=== PATIENT | female | born 1935 | race Caucasian/White ===

== ENCOUNTER 2017-01-26 08:49 | Day surgery (SDC) ==
[2017-01-26] MEDS ORDERED: DIPRIVAN 20 ML VIAL IVP ONE (10:55)
[2017-01-26] MEDS ORDERED: VERSED ONE (10:55)
[2017-01-26 14:57] VITALS: BP 156/63; TEMP 98.2
--- NOTE | 2017-01-27 10:49 | OP ---
INDICATIONS FOR PROCEDURE: 81 year old female presents for evaluate change in bowel habits. She is having intermittent episodes of fecal incontinence. MEDICATIONS: SEE ANESTHESIA NOTES. PROCEDURE: COLONOSCOPY. REPORT: The risks, benefits, alternatives and limitations were discussed in detail with the patient. Informed consent was obtained. After adequate sedation was achieved, a digital rectal exam revealed good tone, no masses. The colonoscope was introduced into the rectum and advanced under direct visual guidance to the cecum. The cecum was identified by the appendiceal orifice and IC valve. I then slowly withdrew the scope in circumferential manner and examined the mucosa quite carefully. I looked on the proximal and distal sides of folds and flexures as best as possible. The colonic mucosa was unremarkably it's entire length other then a few diverticuli scattered throughout the left colon. No other abnormalities were noted including on the retroflex view of the anal canal. The prep was good and the withdraw time was 8 minutes and 40 seconds. The patient tolerated the procedure well with stable vital signs and pulse oximetry throughout. IMPRESSION: 1. Diverticulosis RECOMMENDATIONS: 1. High fiber diet and I have talked to her again about using a daily fiber supplement and she has not tried this yet but she agrees to do so 2. We will see her back in this office as needed 3. Future colonoscopies on an as needed basis. CC: Dr. Willy GONZALEZ
== END 2017-01-26 12:30 | disposition home or self-care (01) ==
LOC: SURG 08:49
PROVIDERS: ATTEND Internal Medicine Gastroenterology
DX: R19.4 Change in bowel habit (principal); K57.30 Diverticulosis of large intestine without perforation or abscess without bleeding; R15.9 Full incontinence of feces

== ENCOUNTER 2017-02-04 09:00 | Outpatient (RCR) ==
--- NOTE | 2017-01-25 15:34 | RS.OPPTEV2 ---
Date of Note: 01/25/17 Visit #: 1 Date of Evaluation: 01/25/17 Payer Source: MEDICARE Date of Onset/Injury/Change in Status: 06/26/16 Surgery Performed?: No Treatment Diagnosis: Neck stiffness, cervcial muscle spasms History of Condition/Mechanism of Injury:: Patient reports receiving a Pneumonia vaccine on 06/26/16 in the left arm. States that evening she experienced left UE swelling, pain, and an elevated blood pressure. States since then she has had muscle guarding in the left side of the neck and stiffness with ROM. States she was unable to drive for three days after receiving the injection. Prior Level of Function.....Patient was independent with: ADL's, Self Care, Caregiving, Ambulation/Mobility, Community Integration/Access Functional Limitations: ADL's Current Subjective/complaints:: Patient reports muscle spasms in the left side of the neck. States she has used a heated massager on the muscle recently, which she feels may have helped a little. Reports no difficulty using the left UE. Reports no problems with headaches. She denies any radiating symptoms into the left UE. Reports limited motion in her neck with driving. States she also notices discomfort in the neck with reading. Treatment Side (optional): Left Medical History Medical History: Unremarkable Smoking Status: Never smoker Hx Home Medications: Tenormin, Cozaar (both for HTN) Patient's Goals: Her goal is to get relief of neck stiffness. Pain Assessment - Pain Description Pain Location: neck (left side) Pain Description: Tightness Current Pain Intensity: 7/10 Worst Pain Intensity: 7/10 Functional Outcome Measure Neck Disability Index: 8 (8% impairment) - G Codes & Severity Modifier G Codes & Modifier: mobility current CI. mobility goal CH Source of G Code score: Neck disability index Observation - Observation Posture: Forward Head, Rounded Shoulders Handedness: Right - ROM Comments: Cervical flexion and extension is WFL's. Rotation right 75% of normal range, rotation left 50-60% of normal range. Patient reports tightness felt with end range with both directions. Bilateral UE AROM WFL's. - Strength Comments: UE strength 4+ to 5/5. Palpation Comments:: Left upper traps demonstrates moderate increased muscle tone. minimal increased muscle tone along left cervical paraspinals. No significant increased tone noted in right upper traps or paraspinals. Patient reports some tenderness with palpation to the upper traps, especially along the superior border of the left scapula. Sensation - Sensation Right Upper Extremity: Intact/Normal Left Upper Extremity: Intact/Normal - Treatment Modality: Ultrasound Parameters/Method Applied: 1.5 w/cm2 cont. X 9 min. to the left upper traps and lower cervical paraspinals. Patient Position: Sitting Interventions - Exercise/Activities/Manual Therapy Exercises/Activities: Patient instructed in gentle stretching into lateral flexion and rotation, and also advised to perform scapular retraction. Manual Therapy: NA HOME EXERCISE PROGRAM: gentle stretching into lateral flexion and rotation, and also advised to perform scapular retraction. - Charges Total Direct Minutes: 50 mins Total Treatment Time: 50 mins Procedures billed for this date of service:: MACARENA Bernal, Assessment Assessment: Patient presents to therapy with a diagnosis of neck stiffness. She demonstrates moderate increased muscle tone along the left upper traps and cervical paraspinals. Cervical rotation is limited, especially to her left. She demonstrates good potential to benefit from modalities, manual therapy, and stretching exercises to reduce her muscle guarding and regain full range of motion. Patient Education: Education of diagnosis, Body/Joint mechanics, Home Exercise Program, Education of Plan of Care Rehab Potential: Good Short Term Goals Goal #1: Muscle tone in left upper traps decreased to minimal. Goal to be met by: 02/01/17 Goal #2: Neck pain <4/10 at it's worst. Goal to be met by: 02/08/17 Goal #3: Cervical rotation WFL's with minimal discomfort. Goal to be met by: 02/08/17 Senior Care Goals Goal #1: Patient knows HEP and to continue ex's to maintain functional level at D/C. Goal to be met by: 03/01/17 Goal #2: Score on Neck Disability Index improved to 0. Goal to be met by: 03/01/17 Goal #3: Pt able to perform all activities and ADL's without neck pain or stiffness. Goal to be met by: 03/01/17 Goal #4: Pt to demonstrate good postural awareness. Goal to be met by: 03/01/17 Plan - Treatment to be Provided Procedures: Therapeutic Exercises, Therapeutic Activity, Manual Therapy, Patient Education Modalities: Electrical Stimulation, Ultrasound/Phonophoresis, Cryotherapy, Hot Packs, Mechanical Traction (cervical traction) - Treatment Plan Frequency: 2-3 X week Duration: 3 weeks ORDER # VISITS AND/OR THROUGH DATE: 03/01/17 - Treatment Code (1) Neck pain Comments: M54.2 (2) Muscle spasms of neck Comments: M62.48
--- NOTE | 2017-01-27 09:58 | RS.OPPTDN ---
Subjective Date of Note: 01/27/17 Visit #: 2 Date of Evaluation: 01/25/17 Payer Source: MEDICARE Treatment Diagnosis: Neck stiffness, cervcial muscle spasms Current Subjective/complaints:: Patient says pain is not present right now, but exists and increases with certain movements of the head or activities. (she is not specific about these however). Pain Assessment - Pain Description Pain Location: neck (left side) Pain Description: Tightness Current Pain Intensity: none right now, but increases with turning her neck to the L - Treatment Modality: Ultrasound Parameters/Method Applied: continuous @ 1.5 w/cm2 x 10 mins to L UT and lower cervical paraspinals Patient Position: Sitting - Heat/Cryotherapy Treatment: Hot Pack (cervical x 20 mins in sitting) Interventions - Exercise/Activities/Manual Therapy Exercises/Activities: Patient received gentle stretching into lateral flexion and rotation, and performs shoulder shrugs and scap adduction. Total minutes of Exercise: 12 Manual Therapy: NA HOME EXERCISE PROGRAM: gentle stretching into lateral flexion and rotation, and also advised to perform scapular retraction. - Charges Total Direct Minutes: 22 Total Treatment Time: 42 Procedures billed for this date of service:: hp, u/s, ex Assessment: Patient voices relief and pleased with decreased neck pain and tightness to the L side of her neck following u/s. She agrees she has improved ability to turn her head with less discomfort. Patient Education: Education of diagnosis, Body/Joint mechanics, Home Exercise Program, Home Safety, Activity Modification, Education of Plan of Care Patient demonstrates compliance with HEP?: Yes (initial ROM exercises) Short Term Goals Goal #1: Muscle tone in left upper traps decreased to minimal. Goal to be met by: 02/01/17 Progress towards Goal:: Progressing Goal #2: Neck pain <4/10 at it's worst. Goal to be met by: 02/08/17 Goal #3: Cervical rotation WFL's with minimal discomfort. Goal to be met by: 02/08/17 Director Operations Goals Goal #1: Patient knows HEP and to continue ex's to maintain functional level at D/C. Goal to be met by: 03/01/17 Goal #2: Score on Neck Disability Index improved to 0. Goal to be met by: 03/01/17 Goal #3: Pt able to perform all activities and ADL's without neck pain or stiffness. Goal to be met by: 03/01/17 Goal #4: Pt to demonstrate good postural awareness. Goal to be met by: 03/01/17 Plan PLAN OF CARE EXPIRES ON:: 03/01/17 ORDER # VISITS AND/OR THROUGH DATE: 03/01/17 PLAN: Continue Plan of Care
--- NOTE | 2017-02-02 11:29 | RS.OPPTDN ---
Subjective Date of Note: 02/02/17 Visit #: 3 Date of Evaluation: 01/25/17 Payer Source: MEDICARE Treatment Diagnosis: Neck stiffness, cervcial muscle spasms Current Subjective/complaints:: Patient admits improved pain to her neck and feeling treatment has been helping. Pain Assessment - Pain Description Pain Location: neck (left side) Pain Description: Tightness Current Pain Intensity: none right now, but increases with turning her neck to the L - Treatment Modality: Ultrasound Parameters/Method Applied: continuous @ 1.5 w/cm2 x 10 mins to L cervical (lower ) paraspinals and UT Patient Position: Sitting - Heat/Cryotherapy Treatment: Hot Pack (cervical in sitting x 20 mins) Interventions - Exercise/Activities/Manual Therapy Exercises/Activities: Patient received gentle stretching into lateral flexion and rotation, and performs shoulder shrugs and scap adduction. Total minutes of Exercise: 12 Manual Therapy: NA HOME EXERCISE PROGRAM: gentle stretching into lateral flexion and rotation, and also advised to perform scapular retraction. - Charges Total Direct Minutes: 22 Total Treatment Time: 42 Procedures billed for this date of service:: hp, u/s, ex Assessment: Patient reporting less neck pain since beginning PT treatment and demo improved riri for cspine ROM. Patient Education: Education of diagnosis, Body/Joint mechanics, Home Exercise Program, Home Safety, Activity Modification, Education of Plan of Care Patient demonstrates compliance with HEP?: Yes Short Term Goals Goal #1: Muscle tone in left upper traps decreased to minimal. Goal to be met by: 02/01/17 Progress towards Goal:: Progressing Goal #2: Neck pain <4/10 at it's worst. Goal to be met by: 02/08/17 Goal #3: Cervical rotation WFL's with minimal discomfort. Goal to be met by: 02/08/17 Elastic Attacher Zigzag Goals Goal #1: Patient knows HEP and to continue ex's to maintain functional level at D/C. Goal to be met by: 03/01/17 Goal #2: Score on Neck Disability Index improved to 0. Goal to be met by: 03/01/17 Goal #3: Pt able to perform all activities and ADL's without neck pain or stiffness. Goal to be met by: 03/01/17 Goal #4: Pt to demonstrate good postural awareness. Goal to be met by: 03/01/17 Plan PLAN OF CARE EXPIRES ON:: 03/01/17 ORDER # VISITS AND/OR THROUGH DATE: 03/01/17 PLAN: Continue Plan of Care
--- NOTE | 2017-02-04 10:37 | RS.OPPTDN ---
Subjective Date of Note: 02/04/17 Visit #: 4 Date of Evaluation: 01/25/17 Payer Source: MEDICARE Treatment Diagnosis: Neck stiffness, cervcial muscle spasms Current Subjective/complaints:: Patient c/o increased L sided neck pain. She says she is unsure why, but later she says she had a colonoscopy (which position may have triggered increased in pain to the neck). Reports it is painful to turn her head to either side. She says she has been trying to use better posture while reading on her phone. Pain Assessment - Pain Description Pain Location: neck (left side) Pain Description: Tightness Current Pain Intensity: none right now, but increases with turning her neck to the L - Treatment Modality: Ultrasound Parameters/Method Applied: L lower cervical paraspinals and UT @ 1.5 w/cm2 continuous x 14 mins Patient Position: Sitting - Heat/Cryotherapy Treatment: Hot Pack (cervical x 20 mins sitting) Interventions - Exercise/Activities/Manual Therapy Exercises/Activities: Patient received abbreviated exercise due to patient continuing to have discomfort with ROM. Encouraged continued postural mechanics /techniques and HEP. Total minutes of Exercise: 5 Manual Therapy: NA HOME EXERCISE PROGRAM: gentle stretching into lateral flexion and rotation, and also advised to perform scapular retraction. - Charges Total Direct Minutes: 19 Total Treatment Time: 39 Procedures billed for this date of service:: hp, u/s Assessment: Patient experiencing elevated L sided neck pain since colonoscopy. Depending on the sidelying position, pain may have resulted from this positioning. U/s was utilized longer to assist with increase in symptoms. She is unable to riri much ROM today, so discontinued and advised patient to try heat at home and HeP later on as well as increasing water intake too. Patient Education: Education of diagnosis, Body/Joint mechanics, Home Exercise Program, Home Safety, Activity Modification, Education of Plan of Care Short Term Goals Goal #1: Muscle tone in left upper traps decreased to minimal. Goal to be met by: 02/01/17 Progress towards Goal:: Progressing Goal #2: Neck pain <4/10 at it's worst. Goal to be met by: 02/08/17 Comments:: Recently had flare of pain affecting ROM Goal #3: Cervical rotation WFL's with minimal discomfort. Goal to be met by: 02/08/17 Snf Goals Goal #1: Patient knows HEP and to continue ex's to maintain functional level at D/C. Goal to be met by: 03/01/17 Goal #2: Score on Neck Disability Index improved to 0. Goal to be met by: 03/01/17 Goal #3: Pt able to perform all activities and ADL's without neck pain or stiffness. Goal to be met by: 03/01/17 Goal #4: Pt to demonstrate good postural awareness. Goal to be met by: 03/01/17 Plan PLAN OF CARE EXPIRES ON:: 03/01/17 ORDER # VISITS AND/OR THROUGH DATE: 03/01/17 PLAN: Continue Plan of Care
--- NOTE | 2017-02-08 11:45 | RS.CXNS ---
Date of scheduled appointment: 02/08/17 Type: No Show
--- NOTE | 2017-02-09 16:25 | RS.QUICKDC ---
Discharge from PT Date of Discharge: 02/09/17 Number of Visits: 4 Reason for Discharge: Patient calls to self discharge due to progress. See daily notes for specific treatment. Gcodes: mobility D/c--CI. goal--CH
== END 2017-02-15 ==
PROVIDERS: ATTEND Internal Medicine
DX: M62.838 Other muscle spasm (principal)

== ENCOUNTER 2018-06-29 12:38 | Inpatient (IN) ==
[2018-06-29 13:28] VITALS: BMI 21.0
[2018-06-29] MEDS ORDERED: NITROSTAT SL PRN (13:29)
[2018-06-29] MEDS ORDERED: VISTARIL INJ IM PRN (13:29)
[2018-06-29] MEDS ORDERED: ATROPINE SULFATE PFS IVP PRN (13:29)
[2018-06-29] MEDS ORDERED: TYLENOL PO PRN (13:29)
[2018-06-29] MEDS ORDERED: NORVASC PO PRN (13:50)
--- NOTE | 2018-06-29 14:34 | DI ---
EXAM: PA and lateral views of the chest HISTORY: Cough COMPARISON: Chest x-ray 06/24/2018 FINDINGS: The cardiomediastinal silhouette is normal. There is no pneumothorax or pleural effusion. There is no consolidation, nodule or mass. The osseous structures demonstrate degenerative disease of the spine. IMPRESSION: No acute cardiopulmonary process
--- NOTE | 2018-06-29 14:50 | US ---
EXAM: Bilateral carotid artery Doppler History: Weakness. Technique: Multiple sonographic images through the bilateral internal carotid arteries were obtained. Color duplex Doppler was used to interrogate vascular flow. Findings: The right ICA peak systolic velocity is within normal limits measuring 0.8. Meters per second. The right ICA/cca PSV ratio is normal at 1.3. The right vertebral artery is patent and demonstrates ante grade flow. Kowalski scale images demonstrate mild to moderate plaque buildup within the right internal carotid artery. The left ICA peak systolic velocity is within normal limits measuring 1.1 meters per second. The lef t ICA/cca PSV ratio is normal at 1.6. The left vertebral artery is patent and demonstrates antegrade flow. Kowalski scale images demonstrate mild to moderate plaque buildup within the left internal caroti d artery. Impression: No significant hemodynamic stenosis of the bilateral internal carotid arteries
[2018-06-29] MEDS ORDERED: COZAAR PO PRN (15:07)
[2018-06-29] MEDS ORDERED: ASPIRIN EC PO SCH (15:30)
[2018-06-30] MEDS ORDERED: ASPIRIN EC PO SCH (08:00)
[2018-06-30] MEDS ORDERED: NON-FORMULARY MEDICATION (Ferrous Sulfate [Iron] 325 MG) PO SCH (09:00)
[2018-06-30] MEDS ORDERED: BYSTOLIC PO SCH (09:00)
[2018-06-30] MEDS ORDERED: NON-FORMULARY MEDICATION (Calcium Carbonate [Calcium] 600 MG) PO SCH (09:00)
[2018-06-30] MEDS ORDERED: FERROUS SULFATE PO SCH (09:00)
[2018-06-30] MEDS ORDERED: COZAAR PO SCH (09:00)
[2018-06-30] MEDS ORDERED: DYAZIDE PO SCH (09:00)
[2018-06-30] MEDS ORDERED: CALCIUM 500 + VIT D 200 MG TABLET PO SCH (09:00)
--- NOTE | 2018-06-30 09:45 | PCM.PROG ---
Attending Provider: ATTENDING PROVIDER: Dr. LUIZA MENEZES This patient is seen with Nicky Castro, Nurse Practitioner. DATE OF SERVICE: 06/30/18 SUBJECTIVE: This 83 year old WHITE/ F was hospitalized 06/29/18. The patient is sitting in the chair. She is anxious, was not able to sleep last night. She did experience some jaw tightness. No sweating or shortness of breath. Blood pressure has been elevated. REVIEW OF SYSTEMS: CONSTITUTIONAL: No night sweats. No fatigue, malaise, lethargy. No fever or chills. HEENT: Eyes: No visual changes. No eye pain. No eye discharge. ENT: No runny nose. No epistaxis. No sinus pain. No odynophagia. No congestion. RESPIRATORY: No cough, no congestion. No hemoptysis. No shortness of breath. CARDIOVASCULAR: No angina symptoms. No CHF symptoms. No atypical chest pain for CAD. No palpitations. No orthopnea.. GASTROINTESTINAL: No abdominal pain. No nausea or vomiting. No diarrhea or constipation. No hematemesis. No hematochezia. GENITOURINARY: No urgency. No frequency. No dysuria. No hematuria. No obstructive symptoms. No discharge. No pain. No significant abnormal bleeding. MUSCULOSKELETAL: No musculoskeletal pain; no joint swelling. NEUROLOGICAL: Awake, alert, oriented to time, place and person. No headache. No neck pain. No syncope. No seizures. No dizziness. PSYCHIATRIC: Anxious. No depression. No suicidal thoughts. No homicidal thoughts. SKIN: No rash. No lesions. No wounds. ENDOCRINE: No unexplained weight loss. No weight gain. HEMATOLOGIC/LYMPHATIC: No anemia. No purpura. No petechiae. No prolonged or excessive bleeding. No palpable lymph nodes. PHYSICAL EXAMINATION: GENERAL: The patient is awake, alert and oriented, sitting in chair in no distress. VITAL SIGNS: Temperature 97.9 F, Pulse 53, Respiratory Rate 16, BP 124/64, Pulse Ox 98% HEENT: Head normocephalic, atraumatic. Eyes: Extraocular muscles are intact. Pupils are equal, round and reactive to light and accommodation. Ears: No lesions. Nose appeared normal. Throat: No exudate or erythema. NECK: Supple. No JVD, no carotid bruit. No lymphadenopathy or thyromegaly. LUNGS: Diminished breath sounds. Clear to auscultation. Percussion note normal. Chest symmetrical. HEART: S1, S2, no S3. No murmurs. No cyanosis or clubbing. No ascites. Pulses: Dorsalis pedis and posterior tibial pulses +1 to +2 both sides. ABDOMEN: Soft. Non-tender. Bowel sounds active. No CVA tenderness. No mass felt. EXTREMITIES: No edema. Full range of motion of all extremities, equal. NEUROLOGIC: No focal deficit. Cranial nerves II through XII are grossly intact. No headache, no double vision or headache. SKIN: Not dry. Intact. Turgor-normal. LYMPHATIC: No palpable lymph nodes/no lymphedema. MUSCULOSKELETAL: Normal joints with no swelling. Muscle tone is normal. LAB REVIEW: 06/30/18 01:30 06/30/18 01:30 06/30/18 01:30: Urine Color Yellow, Urine Clarity Clear, Urine pH 7.5, Ur Specific [place] 1.015, Urine Protein Negative, Urine Glucose (UA) Negative, Urine Ketones Negative, Urine Blood Negative, Urine Nitrite Negative, Urine Bilirubin Negative, Urine Urobilinogen 0.2, Ur Leukocyte Esterase Trace, Urine Microscopic RBC 0-2, Urine Microscopic WBC 2-5, Ur Squamous Epith Cells 2-5 06/30/18 01:30: Sodium 136.6 L, Potassium 3.82, Chloride 105.3, Carbon Dioxide 26.4, Anion Gap 8.72, BUN 19.5 H, Creatinine 0.87, Estimated GFR (MDRD) 62.00, BUN/Creatinine Ratio 22.41, Glucose 97.5, Calcium 8.87, Total Bilirubin 0.43, AST 28.1, ALT 15.2, Alkaline Phosphatase 61.3, Total Protein 6.88, Albumin 3.92 , Globulin 2.96, Albumin/Globulin Ratio 1.32 06/30/18 01:30: WBC 6.10, RBC 3.60 L, Hgb 11.9 L, Hct 34.3 L, MCV 95.3, MCH 33.1 H, MCHC 34.7, RDW Coeff of [place] 11.9, Plt Count 190, Immature Gran % (Auto) 0.8, Neut % (Auto) 43.1, Lymph % (Auto) 38.2, Sharkey % (Auto) 9.7, Eos % (Auto) 7.2 H, Baso % (Auto) 1.0, Immature Gran # (Auto) 0.1, Neut # (Auto) 2.6, Lymph # (Auto) 2.3, Sharkey # (Auto) 0.6, Eos # (Auto) 0.4, Baso # (Auto) 0.1 06/30/18 01:30: Total Creatine Kinase 42.1 06/30/18 01:30: Troponin I < 0.012 06/29/18 21:36: Total Creatine Kinase 47.4, Troponin I < 0.012 06/29/18 13:40: Free T4 0.90 06/29/18 13:40: Sodium 138.2, Potassium 3.62, Chloride 103.3, Carbon Dioxide 31.9 H, Anion Gap 6.62, BUN 17.0, Creatinine 0.89, Estimated GFR (MDRD) 60.00, BUN/Creatinine Ratio 19.10, Glucose 99.8, Calcium 9.18, Total Bilirubin 0.78, AST 26.1, ALT 15.9, Alkaline Phosphatase 56.1, Total Creatine Kinase 49.1, Troponin I < 0.012, Total Protein 7.30, Albumin 4.18, Globulin 3.12, Albumin/ Globulin Ratio 1.33, TSH 1.830 06/29/18 13:40: WBC 5.70, RBC 3.58 L, Hgb 11.9 L, Hct 34.6 L, MCV 96.6, MCH 33.2 H, MCHC 34.4, RDW Coeff of [place] 12.1, Plt Count 199, Immature Gran % (Auto) 0.2, Neut % (Auto) 51.4, Lymph % (Auto) 33.5, Sharkey % (Auto) 7.0, Eos % (Auto) 6.8, Baso % (Auto) 1.1, Immature Gran # (Auto) 0.0, Neut # (Auto) 2.9, Lymph # ( Auto) 1.9, Sharkey # (Auto) 0.4, Eos # (Auto) 0.4, Baso # (Auto) 0.1 ASSESSMENT: 1. HYPERTENSION. 2. QUESTIONABLY POSITIVE STRESS TEST. 3. ANXIETY. PLAN: 1. Renal u/s will be done today. Plan and coordination of the patient's care discussed in the presence of Puppet Master and nurse. CONDITION: Stable SCRIBED BY: ANA ROSA DUMONT, Government Affairs Researcher scribed while in presence of service performed by Dr. Menezes/Nicky Castro APRN on 06/30/18 ([id number])
[2018-06-30 11:34] VITALS: TEMP 98
--- NOTE | 2018-06-30 11:47 | DS ---
DATE OF SERVICE: 05/31/18 FINAL DIAGNOSIS: 1. Abnormal stress, Cardiolite with modest ischemia reversible involving anterior wall and apical area 2. Hypertension 3. Dyslipidemia 4. Chronic anemia 5. Osteoarthritis 6. Osteoporosis DISCHARGE INSTRUCTIONS: Discharge to [facility]. MEDICATIONS AT DISCHARGE: Tenormin 50mg PO daily Cozaar 50mg Twice a day Aspirin 81mg PO daily Ferrous sulfate twice a day NEW PRESCRIPTIONS: Lipitor 40mg PO daily which was started during this hospital stay. DIET INSTRUCTIONS: As tolerated SMOKING: N/A DISEASE SPECIFIC EDUCATION: Transfer Medications LABS: EKG abnormal sinus rhythm, Inferoseptal wall CA age undetermined. Echo cardiogram 2DM Mode normal with normal LV contractility. Stress sestamibi positive for modest ischemia on the distal anterior wall. HGB 11.9, CHT 34, WBC 6,000 normal differential, creatinine 0.8, BUN 19, potassium 3.8. T4 TSH normal. HOSPITAL COURSE: 83 year old white female has been having problems with her hypertension. She visited the emergency room nearly a week ago. Followup during office visits her blood pressure was found to be elevated to level of 210/100 in spite of being on Tenormin and Cozaar. Routine EKG done during ER visit showed anteroseptal septal wall CA with possibility of old inferior wall CA. The patient's EKG prompted cardiac work up with abnormal stress sestamibi done on 06/29/18. The patient is very active and looks good for her age and has practically no symptoms of coronary insufficiency. The level of exercise was very low, positive findings on stress sestamibi so the patient was strongly advised to have further workup done in a way of coronary angiogram to which she agreed. Transfer service of [facility] was called and they accepted the patient. CONDITION: Stable TIME SPENT: More than 60 minutes. CARLOS
[2018-06-30 12:10] VITALS: BP 144/63
--- NOTE | 2018-06-30 13:42 | HP ---
DATE OF SERVICE: 06/29/18 REASON FOR HOSPITALIZATION/HISTORY OF PRESENT ILLNESS: Blood pressure uncontrolled, 7 days. This Am blood pressure begun stress test 218/110. Was given Norvasc 10mg and IV Vasotec 1.25mg = 1.5 hours ago. Asymptomatic- mild shortness of breath with exertion- abnormal EKG, Inferior anteroseptal wall NV ,old. No symptoms of CHF /CAD. PAST MEDICAL HISTORY: Hypertension Dyslipidemia DJD spine Anemia Osteopenia PAST SURGICAL HISTORY: Colonoscopy 01-03 REVIEW OF SYSTEMS: CONSTITUTIONAL: No fever, no fatigue. HEENT: No sinus drainage, no sore throat. RESPIRATORY: No cough, no congestion. CARDIOVASCULAR: No atypical chest pain for coronary artery disease. No angina , CHF symptoms, palpitations or shortness of breath. GASTROINTESTINAL: No melena or abdominal pain. No GERD. GENITOURINARY: No hematuria, no prostatism, no polyuria. [employer]: No blackout, no dizziness, no headache, no double vision. MUSCULOSKELETAL: Osteoarthritis pain, no joint swelling. ENDOCRINE: No weight loss, no weight gain. SKIN: Not dry, no rash. PSYCHIATRIC: Anxious, no depression, no suicidal thoughts, no homicidal thoughts. SOCIAL HISTORY: Marital Status: . Alcohol Usage: No. Tobacco Usage: No. FAMILY HISTORY: Father Mother Brother 3 Sister 1 MEDICATIONS: Tenormin 50mg PO a day Cozaar 50mg PO a day Iron twice a day Vitamin/Calcium daily Aspirin 81mg PO three times a week Red Rice Yeast ALLERGIES: No known allergies PHYSICAL EXAMINATION: V/S: pulse 60, blood pressure 210/108, oxygen saturation 98%, Height 5'2, 119 pounds, 21.7 BMI. GENERAL APPEARANCE: Oriented times three. HEENT: Normal. NECK: No JVP, no bruits. RESPIRATORY: Lungs are clear. CARDIOVASCULAR: S1, S2, no S3, no murmurs. No cyanosis, clubbing. No ascites. GI/ABDOMEN: No tenderness. Bowel sounds are active. EXTREMITIES: edema, pulses +1, equal. [employer] WORK[employer]: Deep tendon reflexes, sensory, motor and gait all normal. RECTAL/PELVIC/PROSTATE: . ASSESSMENT: 1. Severe hypertension/hypertensive urgency 2. Abnormal EKG/rate related LBBB 3. Hypertension 4. Dyslipidemia 5. DJD spine 6. Anemia 7. Osteopenia 8. History of neck pain(left), see Dr. Mullins . The patient took all of her blood pressure medication this AM (Tenormin 50mg and Cozaar 50mg) PLAN: 1. Admit 2. Routine telemetry orders 3. Amlodipine 5mg PO at night PRN for systolic greater than 130. 4. Dyazide one cap PO QAM 5. TSH/T4 6. Renal Doppler for flow to rule out renal artery stenosis 7. Carotid scan 8. Bystolic 500mg PO daily 9. Cozaar 50mg PO daily 10.Cozaar 50mg at bedtime PRN for systolic greater than 130 11.Get results of stress sestamibi this AM. TIME SPENT: More than 70 minutes. MTDD
--- NOTE | 2018-06-30 14:20 | PN ---
CODING FOR BILLING 06/29/18 ADMISSION DAY LEVEL 5 06/30/18 DISCHARGE MTDD
[2018-06-30] MEDS ORDERED: LIPITOR PO SCH (21:00)
[2018-07-01] MEDS ORDERED: ASPIRIN EC PO SCH (09:00)
== END 2018-06-30 14:45 | DRG 303 ==
LOC: MEDSURG B 12:38
PROVIDERS: ADMIT Internal Medicine; ATTEND Internal Medicine
DX: I25.9 Chronic ischemic heart disease, unspecified (principal); I10 Essential (primary) hypertension; E78.5 Hyperlipidemia, unspecified; D64.9 Anemia, unspecified; M19.90 Unspecified osteoarthritis, unspecified site; M47.9 Spondylosis, unspecified; F41.9 Anxiety disorder, unspecified
CPT/HCPCS: 36415; 80053; 81001; 82550; 84439; 84443; 84484; 85025; 93005; 93010; 99223; 99239